=== PATIENT | female | born 1980 | race Caucasian/White ===

== ENCOUNTER 2018-06-07 14:00 | Emergency (ER) | payer BC ==
[~2018-06-07] VITALS: Ht 167.6 cm; Wt 90.3 kg
[~2018-06-07 14:00] MED LIST: IMITREX4 MG/0.51
[2018-06-07] MEDS ORDERED: PREDNISONE 10 M10 MG PO (14:16)
[2018-06-07] MEDS ORDERED: IBUPROFEN 800800 M1 PO (14:16)
[2018-06-07 14:34] LABS: URINE BILIRUBIN NEGATIVE (Negative); URINE BLOOD NEGATIVE (Negative); URINE CLARITY CLEAR; URINE COLOR YELLOW; URINE GLUCOSE-RANDOM NEGATIVE (Negative); URINE KETONES NEGATIVE (Negative); URINE LEUKOCYTES NEGATIVE (Negative); URINE NITRITE NEGATIVE (Negative); URINE PROTEIN NEGATIVE (Negative); URINE UROBILINOGEN 0.2 E.U./dl (0.2-1.0)
[2018-06-07 15:18] LABS: ABSOLUTE EOSINOPHILS 0.1 thou/uL (0.0-0.7); ABSOLUTE LYMPHOCYTES 1.6 thou/uL (0.8-5.3); ABSOLUTE MONOCYTES 0.8 thou/uL (0.0-1.2); ABSOLUTE NEUTROPHILS 6.7 thou/uL (1.6-8.1); BASOPHILS 0.5 %; EOSINOPHILS 0.6 %; HEMATOCRIT 42.5 % (37.0-47.0); HEMOGLOBIN 14.4 gm/dL (12.0-15.0); LYMPHOCYTES 17.7 %; MCH 29.2 pg (26.0-34.0); MCHC 33.8 g/dL (28.0-37.0); MCV 86.4 fL (80.0-100.0); MONOCYTES 8.4 %; MPV 9.3 fl. (7.2-11.1); NUCLEATED RBCS 0 /100WBC; PLATELET COUNT* 278 thou/uL (150-400); POLYS 72.8 %; RBC 4.92 mil/uL (4.20-5.00); WBC 9.2 thou/uL (4.0-11.0)
[2018-06-07 15:31] LABS: CREATININE 0.8 mg/dL (0.6-1.3); POTASSIUM 4.2 mmol/L (3.5-5.1)
[2018-06-07 15:36] LABS: ALBUMIN 3.9 g/dL (3.4-5.0); TOTAL BILIRUBIN 0.6 mg/dL (<0.1-1.0); TOTAL PROTEIN 7.5 g/dL (6.4-8.2)
[2018-06-07] MEDS ORDERED: NORCO 5-325 TA1 EACH PO (18:02)
[2018-06-07] MEDS ORDERED: IBUPROFEN 600600 M1 PO (18:02)
[2018-06-07 18:21] VITALS: BP 118/66
== END 2018-06-07 18:22 | disposition home or self-care (01) ==
LOC: M.ERS 14:00
PROVIDERS: Physician Assistant
DX: N83.201 Unspecified ovarian cyst, right side (principal); G43.909 Migraine, unspecified, not intractable, without status migrainosus; Z98.890 Other specified postprocedural states; Z90.710 Acquired absence of both cervix and uterus; Z88.0 Allergy status to penicillin

== ENCOUNTER 2022-01-07 23:23 | Emergency (ER) | payer OTHER ==
[~2022-01-07] VITALS: Ht 167.6 cm; Wt 129.3 kg
[~2022-01-07 23:23] MED LIST changes: +IBUPROFEN 600600 M1 PO; +IBUPROFEN 800800 M1 PO; +NORCO 5-325 TA1 EACH PO; +PREDNISONE 10 M10 MG PO
[2022-01-07] MEDS ORDERED: CLEOCIN HCL300 MG PO (23:41)
[2022-01-07] MEDS ORDERED: HYDROCODON-ACE1 EAC8 PO (23:41)
[2022-01-07] MEDS ORDERED: ZOFRAN ODT4 MG PO (23:41)
[2022-01-07] MEDS ORDERED: AMBIEN CR 6.26.25 MG PO (23:43)
[2022-01-07] MEDS ORDERED: TOPAMAX100 MG PO (23:43)
[2022-01-07] MEDS ORDERED: DIFLUCAN150 M1 PO (23:51)
[2022-01-07 23:53] VITALS: BP 129/86
== END 2022-01-07 23:58 | disposition home or self-care (01) ==
LOC: M.ERS 23:23
DX: K08.89 Other specified disorders of teeth and supporting structures (principal); G43.909 Migraine, unspecified, not intractable, without status migrainosus; Z98.890 Other specified postprocedural states; Z90.710 Acquired absence of both cervix and uterus; Z98.51 Tubal ligation status; Z79.899 Other long term (current) drug therapy; Z88.0 Allergy status to penicillin